=== PATIENT | female | born 1970 | race Caucasian/White ===

== ENCOUNTER 2021-04-03 07:46 | Outpatient (CLI) | payer MEDICARE, SELFPAY ==
--- NOTE | ~2021-04-03 | US_ITS ---
EXAMINATION: US thyroid EXAM DATE: 04/03/2021 08:48 INDICATION: Solitary thyroid nodule. TECHNIQUE: Multiple grayscale and Doppler images of the thyroid were obtained (by a technologist who performed the scan) and subsequently reviewed. Individual nodules and recommendations may be reporte d in accordance with TI-RADS system as designated by the 2017 ACR White Paper TI-RADS committee. Comp deannson is made to prior examination from 04/03/2012. FINDINGS: The right thyroid lobe measures 4.4 x 2.3 x 1.4 cm. Diffusely heterogeneous thyroid echogenicity with several focal thyroid nodules. The left thyroidectomy bed is unremarkable. Largest nodule in the right there are lobe measures 1.2 x 0.6 x 1.3 cm, solid (2 points), hypoechoic (2 points), wider than tall, smooth well defined margin, without echogenic foci, category TR4 for thi s nodule. This nodule was present on exam from 2011 measured 9 x 6 x 8 mm, has demonstrated mild grow th compared to 9 years ago. This is likely benign. The overall size of the thyroid has decreased in s ize compared to that examination. IMPRESSION: 1. Small right thyroid lobe nodule, likely benign. Consider follow-up ultrasound in 1-2 years. 2. Unremarkable thyroidectomy bed. Reviewed, dictated and finalized at location D. IMPRESSION: 1. Small right thyroid lobe nodule, likely benign. Consider follow-up ultrasoun d in 1-2 years. 2. Unremarkable thyroidectomy bed.
--- NOTE | ~2021-04-03 | CT_ITS ---
EXAMINATION: CT diagnostic chest wo con EXAM DATE: 04/03/2021 08:54 INDICATION: Solitary Lung Nodule,Thyroid Nodule. TECHNIQUE: Spiral CT of the chest without contrast. Axial, coronal and sagittal images of the chest were reviewed. Coronal maximum intensity pixel images of chest reviewed. The dose-length product ( DLP) for this examination was 159.03 mGy-cm. The exposure was tailored according to patient size (au to mA exposure control), and iterative reconstruction (ASIR) was used as additional dose reduction te [place]. Comparison is made to prior examination from 07/21/2018. FINDINGS: There is subsegmental left lower lobe atelectasis without evidence of obstructing endobron chial lesion, continued interval decrease in size of this consistent with benign histology. There ar e no pleural or pericardial effusions. Tracheobronchial tree is patent. There is no mediastinal, hilar or axillary lymphadenopathy. There is no pneumothorax. Heart normal in size. No evidence of coronary arterial calcification. On prior study, the previously seen splenic and liver lesions were much better visualized. This could be due to combination of interval decrease in size of these lesions and/or lack of intravenous contr ast. No evidence that any of these have progressed indicating they're likely benign. There are cholec ystectomy clips. Sclerotic focus in the right 8th rib posterolaterally, bone island unchanged. IMPRESSION: Left lower lobe post infectious residua. No suspicious findings. Reviewed, dictated and finalized at location D.
== END 2021-04-03 07:47 | disposition home or self-care (01) ==
LOC: ANHIMG 07:55
PROVIDERS: PCP Emergency Medicine; Visit Provider Emergency Medicine
DX: R91.1 Solitary pulmonary nodule (principal); E04.1 Nontoxic single thyroid nodule
CPT/HCPCS: 71250; 76536